=== PATIENT | male | born 1990 | race Caucasian/White ===

== ENCOUNTER 2019-08-01 07:43 | Emergency (ER) | payer MEDICAID, SELFPAY ==
[2019-08-01 07:45] VITALS: BP 140/79; PULSE 90; RESP 16; TEMP 36.6; O2SAT 98; BMI 28.8
--- NOTE | 2019-08-01 08:15 | XR_ITS ---
PROCEDURE: XR LUMBAR SPINE 2-3V CLINICAL INDICATION: pain Low back pain COMPARISON: No exams were available for comparison FINDINGS: Is normal alignment. There is mild degenerative disc disease T11-T12 T12-L1 and L1-L2 L4-5 and L5-S1. There is mild facet arthritic changes at L5-S1. No acute fracture or dislocation. No lytic or blastic change. There is straightening of the lumbar lordosis which could be seen with muscle spasm. There is minimal retrolisthesis of L4 on L5 of 2-3 mm IMPRESSION: Degenerative changes as described above. Dictated by: Peewee Low MD 08/01/2019 09:08 Electronically signed by Peewee Low MD in [place] 08/01/2019 09:08
--- NOTE | 2019-08-01 08:58 | HMH.EDBACK ---
ED Disposition Clinical Impression: Strain of lumbar region Disposition: Home, Self-Care Condition on Discharge: Good Instructions: DI for Low Back Pain Prescriptions: Nabumetone 750 mg PO BID 10 Days #20 tab Transmission Status: Pending to [facility] Tizanidine HCl [Zanaflex 4mg tablet] 4 mg PO TID 10 Days #30 tab Transmission Status: Pending to [facility] Referrals: Adriana Bullock MD [Primary Care Provider] - - Critical Care Critical Care Time: No Attestation: On 08/01/19, the high probability of a clinically significant, sudden or life threatening deterioration of the following system(s) required my full and direct attention, intervention and personal management. The time I documented below is in addition to time spent performing reported procedures but includes the following listed in this critical care notation. Medical Decision Making - Medical Records Medical records reviewed: Yes: I reviewed the patient's medical records. - Todd Inquiry Pt receiving controlled substance: No Vital Signs: 08/01/19 07:45 Temperature 98 F Temperature Source Oral Pulse Rate [Left Radial] 90 Respiratory Rate 16 Blood Pressure [Right Arm] 140/79 Blood Pressure Mean [Right Arm] 99 Blood Pressure Position [Right Arm] Sitting 02 Sat by Pulse Oximetry 98 Oxygen Delivery Method Room Air - Lab Data Lab results reviewed: Yes: I reviewed the patient's lab results. Orders (Tests/Meds): ORDERS Category Date Time Status XR lumbar spine 2-3V Stat Exams 08/01/19 08:15 Taken - Radiology Data #1 Image(s): L-Spine Preliminary Findings: Normal/NAD Back Pain HPI - General Chief Complaint: Back Pain/Injury Stated Complaint: back pain, no accident Time Seen by Provider: 08/01/19 08:20 Mode of Arrival: Ambulatory Source of Information: Patient Limitations: No Limitations Description of Symptoms (Recalled from ER Triage Doc. by RN): to ed per pvt car with c/o lt side back pain radiating down lt leg. pt states playing cornhole this weekend and started with pain.states taking motrin and tylenol at home with no relief. - History of Present Illness Complaint: back pain Onset (ago): day(s) Duration: constant Similar Symptoms Previously: Yes Location: lumbar spine Severity: mild Quality: sharp Radiation: none Severity scale (1-10): 4 Relieving factors: sitting upright Exacerbating factors: movement Context: turning/twisting Associated symptoms: denies other symptoms Treatments prior to arrival: cold therapy - Related Data Previous Rx's Medication Instructions Recorded Nabumetone 750 mg PO BID 10 Days #20 tab 08/01/19 Tizanidine HCl [Zanaflex 4mg 4 mg PO TID 10 Days #30 tab 08/01/19 tablet] Allergies Allergy/AdvReac Type Severity Reaction Status Date / Time No Known Allergies Allergy Verified 05/15/19 12:05 [facility] History - Hepatitis A Screen Drug use history?: No High risk sexual behaviors?: No History of sexually transmitted infection?: No Currently employed?: No Childcare worker?: No Do you have indoor plumbing?: Yes Do you have electricity?: Yes Attestation statement:: This patient has been screened for Hepatitis A risk factors. I have reviewed the patient's past medical history: Yes Other Surgeries: Yes: No Previous Surgery - Social History Smoking Status: Current every day smoker Alcohol Intake: never Alcohol Intake Frequency:: holidays/special occasions only Occupational Status: other Housing: other Family Hx:: Non-contributory ROS Obtained: Yes All systems reviewed & no additional complaints - Constitutional Constitutional: Reports system reviewed and no additional complaints, except as docu - Eyes Eyes: Reports system reviewed and no additional complaints, except as docu - ENT Ears, Nose, Mouth, and Throat: Reports system reviewed and no additional complaints, except as docu - Cardiovascular Cardiovascular: Reports system r
[2019-08-01 09:19] VITALS: BP 131/74; PULSE 78; RESP 16; TEMP 36.6; O2SAT 98
== END 2019-08-01 09:20 | disposition home or self-care (01) ==
PROVIDERS: Emergency Provider Family Medicine; PCP Family Medicine
DX: S39.012A Strain of muscle, fascia and tendon of lower back, initial encounter (principal); X50.3XXA Overexertion from repetitive movements, initial encounter; Y92.89 Other specified places as the place of occurrence of the external cause
CPT/HCPCS: 72100; 99282

== ENCOUNTER 2020-01-16 12:41 | Emergency (ER) | payer MEDICAID, SELFPAY ==
[2020-01-16 13:15] VITALS: BP 116/83; PULSE 91; RESP 14; TEMP 36.9; O2SAT 95; BMI 25.7
--- NOTE | 2020-01-16 13:26 | HMH.EDUTC ---
[facility] [place]ression: Abscess of right leg Disposition: Home, Self-Care Condition on Discharge: Good Instructions: Boil Additional Instructions: Apply warm wet compresses to the affected sites three or four times per day for 15 minutes as tolerated. Take the antibiotics as directed. Follow up with your regular doctor. GO TO THE ER FOR ANY WORSENING SYMPTOMS OR CONCERNS Prescriptions: Sulfamethoxazole/Trimethoprim [Bactrim DS tablet] 1 each PO BID 10 Days #20 tab Transmission Status: Received by [facility] Mupirocin [Bactroban 2% Ointment 22gm tube] 1 applicatio TP TID 7 Days #1 tube Transmission Status: Received by [facility] cephALEXin [Keflex 500mg Cap] 500 mg PO Q6H 10 Days #40 cap Transmission Status: Received by [facility] Referrals: Adriana Bullock MD [Primary Care Provider] - Forms: Work/School Release Time of Disposition: 13:55 Medical Decision Making - Medical Records Medical records reviewed: No: I reviewed the patient's medical records. - Todd Inquiry Pt receiving controlled substance: No Vital Signs: 01/16/20 13:15 01/16/20 14:01 Temperature 98.5 F 98.5 F Temperature Source Oral Pulse Rate 91 H Pulse Rate [Right Brachial] 91 H Respiratory Rate 14 14 Blood Pressure 116/83 Blood Pressure [Right Arm] 116/83 Blood Pressure Mean [Right Arm] 94 Blood Pressure Source [Right Arm] Automatic Cuff Blood Pressure Position [Right Arm] Sitting 02 Sat by Pulse Oximetry 95 Oxygen Delivery Method Room Air Orders (Tests/Meds): ED MEDICATIONS Discontinued Medications Generic Name Dose Route Start Last Admin Trade Name Freq PRN Reason Stop Dose Admin Ceftriaxone Sodium 1 gm 01/16/20 13:29 01/16/20 13:54 Ceftriaxone 1gm Vial IM 01/16/20 13:30 1 gm ONCE ONE Administration Protocol Lidocaine HCl 0 ml 01/16/20 13:29 01/16/20 13:54 Lidocaine 1% 5ml Pf Vial IM 01/16/20 13:30 2.1 ml ONCE ONE Administration ORDERS Category Date Time Status Wound Culture and Gram Stain Stat Micro 01/16/20 13:30 [place] [facility] [place] - General Stated complaint: Possible spider R leg Time Seen by Provider: 01/16/20 13:15 - History of Present Illness Provider Complaint: He states that he has a red area on the back of right leg. It has been there for the past 4 days. He states that it is getting more red around the the site. - Related Data Previous Rx's Medication Instructions Recorded Nabumetone 750 mg PO BID 10 Days #20 tab 08/01/19 Tizanidine HCl [Zanaflex 4mg 4 mg PO TID 10 Days #30 tab 08/01/19 tablet] Mupirocin [Bactroban 2% Ointment 1 applicatio TP TID 7 Days #1 tube 01/16/20 22gm tube] Sulfamethoxazole/Trimethoprim 1 each PO BID 10 Days #20 tab 01/16/20 [Bactrim DS tablet] cephALEXin [Keflex 500mg Cap] 500 mg PO Q6H 10 Days #40 cap 01/16/20 Allergies Allergy/AdvReac Type Severity Reaction Status Date / Time No Known Allergies Allergy Verified 05/15/19 12:05 [facility] History - Hepatitis A Screen Attestation statement:: This patient has been screened for Hepatitis A risk factors. I have reviewed the patient's past medical history: Yes Other Surgeries: Yes: No Previous Surgery - Social History Smoking Status: Current every day smoker Alcohol Intake: never Alcohol Intake Frequency:: holidays/special occasions only Occupational Status: other Housing: other Family Hx:: Non-contributory ROS Obtained: Yes All systems reviewed & no additional complaints - Constitutional Constitutional: Reports chills, Denies fever(s), Denies poor appetite, Reports malaise - Eyes Eyes: Denies eye discharge - Integumentary/Breasts Skin/Breast: Reports as per HPI Physical Exam - General General appearance: alert, in no apparent distress - Head Head exam: atraumatic, normocephalic, normal inspection - Eye Eye exam: Present: normal appearance, PERRL, EOMI
[2020-01-16 14:01] VITALS: BP 116/83; PULSE 91; RESP 14; TEMP 36.9; O2SAT 95
== END 2020-01-16 14:13 | disposition home or self-care (01) ==
PROVIDERS: Emergency Provider Nurse Practitioner Family; PCP Family Medicine
DX: L02.415 Cutaneous abscess of right lower limb (principal); F17.210 Nicotine dependence, cigarettes, uncomplicated
CPT/HCPCS: 87070; 87077; 87186; 87205; 96372; 99202

== ENCOUNTER 2021-01-16 13:56 | Emergency (ER) | payer MEDICAID, SELFPAY ==
[2021-01-16 14:00] VITALS: BP 148/81; PULSE 89; RESP 21; TEMP 37; O2SAT 99; BMI 30.2
--- NOTE | 2021-01-16 14:26 | HMH.EDUTC ---
[facility] [place]ression: Strep [place] Disposition: Home, Self-Care Condition on Discharge: Good Instructions: DI for Strep Throat Additional Instructions: Start antibiotics today be sure to take it as ordered with the full length of time although you should start feeling better in 24-48 hours. Change toothbrush and toothpaste 24-48 hours after starting antibiotics Tylenol or Motrin as needed for fever or pain Encourage fluids, water, Gatorade, Powerade, try cold fluids, popsicles, ice cream will make it feel better You are contagious for 24 hours. Avoid kissing anyone, no eating or drinking after anyone. You are contagious. Follow-up the ER for new or worsening symptoms or no noticeable improvement over the next 24-48 hours. Follow-up with PCP this week. Prescriptions: Azithromycin [Zithromax 250mg tab] 250 mg PO DIRECTED #6 tab Transmission Status: Pending to [id number] Referrals: Adriana Bullock MD [Primary Care Provider] - Time of Disposition: 14:48 Medical Decision Making - Todd Inquiry Pt receiving controlled substance: No Vital Signs: 01/16/21 14:00 Temperature 98.6 F Temperature Source Oral Pulse Rate [Right Brachial] 89 Respiratory Rate 21 Blood Pressure [Right Arm] 148/81 H Blood Pressure Mean [Right Arm] 103 Blood Pressure Source [Right Arm] Automatic Cuff Blood Pressure Position [Right Arm] Sitting 02 Sat by Pulse Oximetry 99 Oxygen Delivery Method Room Air - Lab Data Lab Results 01/16/21 14:19: Strep Scn Rapid Clinic Positive [place] [facility] [place] - General Chief complaint: Urgent [facility] Stated complaint: sore throat Time Seen by Provider: 01/16/21 14:26 Mode of Arrival: Ambulatory Source of Information: Patient Limitations: No Limitations Description of Symptoms (Recalled from Triage Doc. by RN): PATIENT C/O SORE THROAT SINCE YESTERDAY HEENT Symptoms (Recalled from RN notes): Yes Resp Symptoms (Recalled from RN notes): No Skin Symptoms (Recalled from RN notes): No MS Symptoms (Recalled from RN notes): No Functional Status (Recalled from RN notes): WNL - History of Present Illness Provider Complaint: 30 yr old male presnets for sore throat since monday. - Related Data Previous Rx's Medication Instructions Recorded Azithromycin [Zithromax 250mg 250 mg PO DIRECTED #6 tab 01/16/21 tab] Allergies Allergy/AdvReac Type Severity Reaction Status Date / Time No Known Allergies Allergy Verified 05/15/19 12:05 - Worker's Comp Is this a Worker's Comp case?: No H History - Hepatitis A Screen Drug use history?: No High risk sexual behaviors?: No History of sexually transmitted infection?: No Currently employed?: No Childcare worker?: No Do you have indoor plumbing?: Yes Do you have electricity?: Yes Attestation statement:: This patient has been screened for Hepatitis A risk factors. I have reviewed the patient's past medical history: Yes Laterality Cases: Bilateral: Myringotomy (Ear Tubes) Other Surgeries: Yes: No Previous Surgery - Social History Smoking Status: Current every day smoker Tobacco Type: cigarettes # Packs/Day (cigarettes): 1 Alcohol Intake: never Alcohol Intake Frequency:: holidays/special occasions only Occupational Status: other Housing: other Family Hx:: Non-contributory ROS Obtained: Yes Systems reviewed as appropriate & no additional complaints - Constitutional Constitutional: Reports system reviewed and no additional complaints, except as docu, Denies fever(s) - Eyes Eyes: Reports system reviewed and no additional complaints, except as docu, Denies dry eyes - ENT Ears, Nose, Mouth, and Throat: Reports system reviewed and no additional complaints, except as docu, Denies abnormal hearing, Reports sore throat - Cardiovascular Cardiovascular: Reports system reviewed and no additional complaints, except as docu, Denies chest pain - Respiratory Respiratory: Reports system review
[2021-01-16 14:33] LABS: UTC Strep Screen (Rapid) Positive (Negative)
[2021-01-16 14:49] VITALS: BP 148/81; PULSE 89; RESP 21; TEMP 37; O2SAT 99
== END 2021-01-16 14:54 | disposition home or self-care (01) ==
PROVIDERS: Emergency Provider Nurse Practitioner Family; PCP Family Medicine
DX: J02.0 Streptococcal pharyngitis (principal); F17.210 Nicotine dependence, cigarettes, uncomplicated
CPT/HCPCS: 87880; 99202; G0463

== ENCOUNTER 2023-08-31 11:34 | Emergency (ER) | payer MEDICAID, SELFPAY ==
[2023-08-31 11:50] VITALS: BP 110/86; PULSE 84; RESP 20; TEMP 36.9; O2SAT 98; BMI 24.6
--- NOTE | 2023-08-31 12:37 | ED_ITS ---
Discharge Plan Disposition Patient Disposition: Home, Self-Care Condition: Good Prescriptions Prescriptions: New fluticasone propionate [Flonase Allergy Relief] 50 mcg/actuation spray,suspension 1 spray intranasal DAILY Qty: 16 0RF Rx Instructions: administer into each nostril twice a day for a week and then once daily amoxicillin-pot clavulanate 875-125 mg tablet 1 tab PO Q12H 10 Days Qty: 20 0RF Referrals Follow up/Referrals: Paulette Reyes MD [Primary Care Provider] - See instructions Activity Restrictions/Add. Instructions Additional Instructions/Restrictions: Take medication as prescribed. Increase fluids and rest. If symptoms persist or worsen, return to clinic or go to PCP. Clinical Impressions Clinical Impression: Otitis media Stand Alone Forms Stand Alone Forms: Work/School Release Instructions Patient Instructions: Middle Ear Infection Discharge ED Provider: Vanna Daley [facility] General Stated complaint: left ear pain Mode of Arrival: Ambulatory Source of Information: Patient Limitations: No Limitations Time Seen by Provider: 08/31/23 12:32 Description of Symptoms (Recalled from Triage Doc. by RN): PATIENT C/O PAIN, RINGING, AND MUFFLED HEARING TO LEFT EAR X 4 DAYS HEENT Symptoms (Recalled from RN notes): Yes Resp Symptoms (Recalled from RN notes): No Skin Symptoms (Recalled from RN notes): No MS Symptoms (Recalled from RN notes): No Functional Status (Recalled from RN notes): WNL History of Present Illness Provider Complaint: left ear pain with ringing and muffled hearing for the past 4 days. Pt states that he took a Sudafed to help with symptoms, but this did not help. Related Data Previous Rx's Medication Instructions Recorded amoxicillin 875 mg-potassium 1 tab PO Q12H 10 days #20 tabs 08/31/23 clavulanate 125 mg tablet fluticasone propionate 50 1 spray intranasal DAILY #16 grams 08/31/23 mcg/actuation nasal spray,suspension (Flonase Allergy Relief) Allergies Allergy/AdvReac Type Severity Reaction Status Date / Time No Known Allergies Allergy Verified 05/15/19 12:05 Worker's Comp Is this a Worker's Comp case?: No [facility] Disclaimer: The information contained in this section may have been updated after the patient was seen, as this information can be updated by other users. Medical History (Updated 08/31/23 @ 12:41 by Vanna Daley APRN) No significant past medical history Social History Smoking Status: Current every day smoker tobacco type: cigarettes packs per day: 1 alcohol intake: never current occupational status: other Travel in the last 8 weeks: None housing: other ROS Obtained: Yes All systems reviewed & no additional complaints except as documented Constitutional Constitutional: Reports system reviewed and no additional complaints, except as documented Eyes Eyes: Reports system reviewed and no additional complaints, except as documented ENT Ears, Nose, Mouth, and Throat: Reports system reviewed and no additional complaints, except as documented, Reports as per HPI, Reports otalgia and Reports nasal discharge Cardiovascular Cardiovascular: Reports system reviewed and no additional complaints, except as documented Respiratory Respiratory: Reports system reviewed and no additional complaints, except as documented Gastrointestinal Gastrointestingal: Reports system reviewed and no additional complaints, except as documented Genitourinary Male Genitourinary: Reports system reviewed and no additional complaints, except as documented Musculoskeletal Musculoskeletal: Reports system reviewed and no additional complaints, except as documented Integumentary/Breasts Skin/Breast: Reports system reviewed and no additional complaints, except as documented Neurologic Neurologic: Reports system reviewed and no additional complaints, except as documented Endocrine Endocrine: Reports system reviewed and no additional complaints, except as documented Hematologic/Lymphatic Henatologic/Lymphatic: Reports system reviewed and no additional complaints, except as documented Allergic/Immunologic Allergic/Immunologic: Reports system reviewed and no additional complaints, except as documented Physical Exam General General appearance: alert Head Head exam: atraumatic and normocephalic Eye Eye exam: Present normal appearance ENT ENT exam: Present mucous membranes moist Expanded ENT Exam External ear exam: Present normal external inspection TM/Canal exam: Left TM: erythema and perforation, Right TM: bulging and Armando ateral TM: effusion and loss of landmarks Nose exam: Present sinus tenderness Nasal speculum exam: Bilateral: normal Mouth exam: Present normal external inspection Teeth exam: Present normal inspection Throat exam: Present normal inspection Neck Neck exam: Present normal inspection; Absent lymphadenopathy Chest Chest inspection: Present normal inspection and symmetric chest wall rise Respiratory Respiratory exam: Present normal lung sounds bilaterally Cardiovascular Cardiovascular exam: Present regular rate, normal rhythm and normal heart sounds Abdominal Exam Abdominal exam: Present soft and normal bowel sounds Extremities Exam Extremities exam: Present normal inspection Back Exam Back exam: Present normal inspection Neurological Exam Neurological exam: Present alert and oriented X3 Psychiatric Psychiatric exam: Present normal affect and normal mood Skin Skin exam: Present warm, dry and intact Lymphatic Lymphatic Findings: no adenopathy Medical Decision Making Todd Inquiry Pt receiving controlled substance: No Todd was queried for this patient: No Vital Signs: 08/31/23 11:50 Temperature 98.4 F Temperature Source Oral Pulse Rate [Left Brachial] 84 Respiratory Rate 20 Blood Pressure [Left Arm] 110/86 Blood Pressure Mean [Left Arm] 94 Blood Pressure Source [Left Arm] Automatic Cuff Blood Pressure Position [Left Arm] Sitting 02 Sat by Pulse Oximetry 98 Oxygen Delivery Method Room Air
[2023-08-31 12:42] VITALS: BP 110/86; PULSE 84; RESP 20; TEMP 36.9; O2SAT 98
== END 2023-08-31 12:46 | disposition home or self-care (01) ==
PROVIDERS: Emergency Provider Nurse Practitioner Family; PCP Family Medicine
DX: H66.92 Otitis media, unspecified, left ear (principal); H92.02 Otalgia, left ear
CPT/HCPCS: 99212; 99214; G0463

== ENCOUNTER 2024-10-13 12:58 | Emergency (ER) | payer OTHER, SELFPAY ==
[2024-10-13 13:12] VITALS: BP 128/86; PULSE 95; RESP 18; TEMP 36.8; O2SAT 98; BMI 25.0
--- NOTE | 2024-10-13 13:13 | ECG_ITS ---
APPROVED REPORT Exam: Resting ECG HR:97 bpm ECG Measurements Heart Rate 97 AXES ND 138 P 50 QRSd 106 QRS 40 QT 347 T 42 QTc 401 Conclusion SINUS RHYTHM POSSIBLE LEFT ATRIAL ENLARGEMENT [-0.1mV P-WAVE IN V1/V2] POSSIBLE RIGHT VENTRICULAR CONDUCTION DELAY [RSR (QR) IN V1/V2] BORDERLINE ECG UNCONFIRMED REPORT Normal sinus rhythm. No ST elevation or depression. QTc normal 401 Electronically signed by : ISAIAS RAMOS, 10/14/2024 07:04:24
--- OUTSIDE RECORDS SUMMARY | 2024-10-13 13:13 | XMS_ITS | Clinical Summary ---
Author Organization [facility] Address [address] [place] [id number] Phone [email or web address] Care Team Providers Care Candy Department Manager Name Role Phone Unavailable Primary Care Provider Unavailabl e Allergies No known active allergies Medications acetaminophen (TYLENOL) 500 MG tablet Take by mouth every 6 (six) hours if needed for mild pain. OTC Active ibuprofen (MOTRIN) 200 MG tablet Take 200 mg by mouth every 6 (six) hours if needed for mild pain. OTC Active Active Problems No known active problems Social History Tobacco Use Types Packs/Day Years Used Date Smoking Tobacco: Every Day Cigarettes Smokeless Tobacco: Current Chew Intimate Partner Violence Answer Date R ecorded Insults You Not on file 06/17/2020 Threatens You Not on file 06/17/2020 Screams at You Not on file 06/17/2020 Physically Hurt Not on file 06/17/2020 Intimate Partner Violence Score Not on file 06/17/2020 Stress Answer Date Recorded Stress in your Life Not on file 01/09/2024 Dealing with Stress 3 01/09/2024 Sex and Gender Information Value Date Recorded Sex Assigned at Not on file Legal Sex Male 12:13 PM CDT Gender Identity Not on file Sexual Orientation Not on file Last Filed Vital Signs Vital Sign Reading Time Taken Comments Blood Pressure - - Pulse 103 10/20/2020 10:32 PM EDT Temperature 37.8 C (100.1 F) 10/20/2020 10:32 PM EDT Respiratory Rate - - Oxygen Saturation 95% 10/20/2020 10:32 PM EDT Inhaled Oxygen Concentration - - Weight - - Height - - Body Mass Index - - Plan of Treatment Health Maintenance Due Date Last Done Comments Dental Cleaning/Exam 1988 HIV Screening 1988 Hepatitis C Screening 1988 HPV Immunization (1 - Male 3 -dose series) 02/24/2003 Annual Preventive Exam 02/24/2006 Hep B Infection Screening - Triple Screen 02/24/2006 Hepatitis B Immunization (1 of 3 - 19+ 3-dose series) 02/24/2007 Pneumococcal: Ped (0 to 5 Yr s) and At-Risk Member (6 to 64 Yrs) (1 of 2 - PCV) 02/24/2007 Tetanus Diphtheria and Pertu ssis Immunization (1 - Tdap) 02/24/2007 Covid-19 Immunization (1 - 2 season) 2023 Influenza Immunization (#1) 2024 HIB Immunization Aged Out No longer e ligible based on patient's age to complete this topic Hepatitis A Immunization Aged Out No longer eligible based on patient's age to complete this topic Polio Immunization Aged Out No longer eligible based on patient's age to complete this topic Varicella Immunization Aged Out No lo nger eligible based on patient's age to complete this topic Insurance OPT OUT NO COPAY NB
--- NOTE | 2024-10-13 13:21 | CT_ITS ---
PROCEDURE INFORMATION: Exam: CTA Head With Contrast, Arteriography Exam date and time: 10/13/2024 1:45 PM Age: 34 years old Clinical indication: Other: Right facial droop TECHNIQUE: Imaging protocol: Computed tomographic angiography of the head with contrast. Exam focused on the arteries. 3D rendering (Not supervised by radiologist): MIP and/or 3D reconstructed images were created by the technologist. Radiation optimization: All CT scans at this facility use at least one of these dose optimization techniques: automated exposure control; mA and/or kV adjustment per patient size (includes targeted exams where dose is matched to clinical indication); or iterative reconstruction. Contrast material: ISOVUE; Contrast volume: 80 ml; Contrast route: INTRAVENOUS (IV); COMPARISON: CT HEAD/BRAIN WO CON 10/13/2024 1:43 PM FINDINGS: ANTERIOR CIRCULATION: Right internal carotid artery: Intracranial segment is patent with no significant stenosis. No aneurysm. Right middle cerebral artery: No occlusion or significant stenosis. No aneurysm. Right anterior cerebral artery: No occlusion or significant stenosis. No aneurysm. Left internal carotid artery: Intracranial segment is patent with no significant stenosis. No aneurysm. Left middle cerebral artery: No occlusion or significant stenosis. No aneurysm. Left anterior cerebral artery: No occlusion or significant stenosis. No aneurysm. POSTERIOR CIRCULATION: Right vertebral artery: No occlusion or significant stenosis. No aneurysm. Left vertebral artery: The intradural segment of the left vertebral artery is small but patent. Basilar artery: No occlusion or significant stenosis. No aneurysm. Right posterior cerebral artery: No occlusion or significant stenosis. No aneurysm. Left posterior cerebral artery: No occlusion or significant stenosis. No aneurysm. Brain: No abnormal enhancement. Cerebral ventricles: No ventriculomegaly. Bones/joints: No acute fracture. Soft tissues: Unremarkable. IMPRESSION: There is no acute intracranial large vessel arterial occlusion.
--- NOTE | 2024-10-13 13:21 | CT_ITS ---
PROCEDURE INFORMATION: Exam: CTA Neck With Contrast Exam date and time: 10/13/2024 1:45 PM Age: 34 years old Clinical indication: Other: R facial droop; Additional info: Right facial droop TECHNIQUE: Imaging protocol: Computed tomographic angiography of the neck with contrast. Exam focused on the cervical segments of the vasculature. 3D rendering (Not supervised by radiologist): MIP and/or 3D reconstructed images were created by the technologist. Radiation optimization: All CT scans at this facility use at least one of these dose optimization techniques: automated exposure control; mA and/or kV adjustment per patient size (includes targeted exams where dose is matched to clinical indication); or iterative reconstruction. Contrast material: ISOVUE; Contrast volume: 80 ml; Contrast route: INTRAVENOUS (IV); COMPARISON: CT HEAD/BRAIN WO CON 10/13/2024 1:43 PM FINDINGS: Right common carotid artery: No stenosis. No dissection or occlusion. Right internal carotid artery: No stenosis of the extracranial segment. No dissection or occlusion. Right external carotid artery: No occlusion or stenosis of the origin. Left common carotid artery: No stenosis. No dissection or occlusion. Left internal carotid artery: No stenosis of the extracranial segment. No dissection or occlusion. Left external carotid artery: No occlusion or stenosis of the origin. Right vertebral artery: The right vertebral artery is dominant Left vertebral artery: No stenosis. No dissection or occlusion. Soft tissues: Normal. No significant soft tissue swelling. Bones/joints: The maxilla is edentulous. The mandible is partially edentulous. Lungs: There are some paraseptal emphysematous changes apices. IMPRESSION: No hemodynamically significant cervical arterial stenosis or acute cervical arterial occlusion. REFERENCES: NASCET CRITERIA. The degree of stenosis in the cervical segment of the internal carotid artery is based on NASCET criteria. Normal is no stenosis. Mild is less than 50% stenosis. Moderate is 50-69% stenosis. Severe is 70% to 99% stenosis. Total occlusion is no detectable patent lumen.
--- NOTE | 2024-10-13 13:21 | CT_ITS ---
PROCEDURE INFORMATION: Exam: CT Head Without Contrast Exam date and time: 10/13/2024 1:43 PM Age: 34 years old Clinical indication: Other: Right facial droop TECHNIQUE: Imaging protocol: Computed tomography of the head without contrast. Radiation optimization: All CT scans at this facility use at least one of these dose optimization techniques: automated exposure control; mA and/or kV adjustment per patient size (includes targeted exams where dose is matched to clinical indication); or iterative reconstruction. COMPARISON: CT HEAD/BRAIN WO CON 10/13/2024 1:43 PM FINDINGS: Brain: No hemorrhage. Unremarkable white matter. No mass effect. Cerebral ventricles: No ventriculomegaly. Paranasal sinuses: Visualized sinuses are unremarkable. No fluid levels. Mastoid air cells: Visualized mastoid air cells are well aerated. Bones: No acute fracture. Soft tissues: Unremarkable. IMPRESSION: No acute intracranial abnormality.
[2024-10-13 13:26] LABS: Hematocrit 45.7 % (42.0-52.0); Hemoglobin 15.8 g/dL (14.1-18.0); Immature Granulocytes % 0.2 %; Mean Corpuscular HGB Conc 34.6 g/dL (31.8-35.4); Mean Corpuscular Hemoglobin 31.9 pg (27.0-31.2); Mean Corpuscular Volume 92.1 fl (80-94); Nucleated Red Blood Cells % 0 %; Platelet Count 237 K/mm3 (142-424); Red Blood Count 4.96 M/mm3 (4.60-6.20); Red Cell Distribution Width-SD 46.8 fL; White Blood Count 8.7 K/mm3 (4.8-10.8)
--- NOTE | 2024-10-13 13:28 | [facility].EDGENADL ---
Discharge Plan Disposition Patient Disposition: Home, Self-Care Prescriptions Prescriptions: New valacyclovir 1 gram tablet 1,000 mg PO TID 7 Days Qty: 21 0RF Artificial Tears (cmc) 1 % drops 1 drp ophthalmic (eye) Q3H PRN (Reason: dry eye(s)) Qty: 15 0RF No Action fluticasone propionate [Flonase Allergy Relief] 50 mcg/actuation spray,suspension 1 spray intranasal DAILY Qty: 16 0RF Rx Instructions: administer into each nostril twice a day for a week and then once daily amoxicillin-pot clavulanate 875-125 mg tablet 1 tab PO Q12H 10 Days Qty: 20 0RF Referrals Follow up/Referrals: Provider,Referral, MD [Primary Care Provider, Medical] - See instructions Activity Restrictions/Add. 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 You are being prescribed Yadi acyclovir for this reason. At night, tape your right eye shut because it will open on its own while sleeping and can dry out your eyes. You are also being prescribed moisturizing eyedrops. Use these as needed. If you develop any new or worsening symptoms, or if you become concerned for your health for any reason, return to the emergency department for evaluation Clinical Impressions Clinical Impression: Ballard's palsy Instructions Patient Instructions: DI for [place] [facility] Print Language Print Language: Frisian Discharge ED Provider: Tanner Jordan General Adult HPI General Chief complaint: Neuro Symptoms/Deficit Stated complaint: numbness on L side of face Time Seen by Provider: 10/13/24 13:12 Mode of Arrival: Ambulatory Source of Information: Patient Description of Symptoms (Recalled from ER Triage Doc. by RN): Pt presents with c/o right sided facial numbness, numbness to tongue, and asymmetical smile since 10-07-24. Pt states he would try to drink and it was just coming out the side of his mouth. Pt denies any prior medical hx. History of Present Illness HPI narrative: Felice Nicole is a 34-year-old male with no known past medical history who presents to the emergency department with complaints of right facial drooping and numbness. Patient states that starting on Monday, he developed numbness and tingling to the right side of his tongue. The following day he developed drooping of his right lip and right face. He states that he feels like he is having to blink a lot and that his right eye does not close all the way. He was reading online that this could be signs of a stroke so he presented to the emergency department today. He denies any recent rashes or history of strokes. He denies any chest pain or shortness of breath. He denies any numbness or weakness in his arms or legs. He has been ambulating normally. Related Data Previous Rx's ?Medication ?Instructions ?Recorded amoxicillin 875 mg-potassium 1 tab PO Q12H 10 days #20 tabs 08/31/23 clavulanate 125 mg tablet fluticasone propionate 50 1 spray intranasal DAILY #16 grams 08/31/23 mcg/actuation nasal spray,suspension (Flonase Allergy Relief) carboxymethylcellulose sodium 1 % 1 drp ophthalmic (eye) Q3H PRN dry 10/13/24 eye drops (Artificial Tears eye(s) #15 mL (carboxymethylcellulose)) valacyclovir 1 gram tablet 1,000 mg PO TID 7 days #21 tabs 10/13/24 Allergies Allergy/AdvReac Type Severity Reaction Status Date / Time No Known Allergies Allergy Verified 05/15/19 12:05 [facility] Disclaimer: The information contained in this section may have been updated after the patient was seen, as this information can be updated by other users. Medical History (Updated 10/13/24 @ 14:29 by Tanner Jordan MD) No significant past medical history Social History Smoking Status: Current every day smoker tobacco type: cigarettes packs per day: 1 alcohol intake: never current occupational status: other Travel in the last 8 weeks?: None housing: other Have you lived/traveled outside [place] in past 30 days?: No Contact w/someone who lives/traveled outside [place] past 30 days?: No Exposure to someone with infectious disease in past 14 days?: No Do you have a fever (greater than 100.4 F or 38 C)?: No Have you tested positive for COVID-19?: No Exposed to someone with COVID-19 in past 14 days?: No Do you have a sore throat?: No Do you have a cough?: No Do you have any weakness?: No Do you have any diarrhea?: No Are you experiencing any unusual bleeding?: No Do you have any muscle aches/pain?: No Do you have any abdominal pain?: No Are you experiencing loss of taste or smell?: No Other Medical History Have you received the Flu Vaccine for this season: No Have you received the Pneumonia Vaccine: No ROS Obtained: Yes Systems reviewed as appropriate & no additional complaints except as documented Physical Exam General General appearance: alert and in no apparent distress Head Head exam: atraumatic Eye Eye exam: Present normal appearance ENT ENT exam: Present TM's normal bilaterally, normal external ear exam and other (No rashes to the external auditory canal or tympanic membrane) Neck Neck exam: Present full ROM Chest Chest inspection: Present symmetric chest wall rise Respiratory Respiratory exam: Present normal lung sounds bilaterally; Absent respiratory distress Cardiovascular Cardiovascular exam: Present regular rate and normal rhythm Abdominal Exam Abdominal exam: Present soft; Absent tenderness or guarding exam: Present deferred Extremities Exam Extremities exam: Present normal inspection Back Exam Back exam: Present normal inspection Neurological Exam Neurological exam: Present alert, oriented X3 and other (5 out of 5 strength and sensation to bilateral upper and lower extremities. Finger-nose testing normal. Normal [id number] testing.); Absent CN II-XII intact (Facial drooping on the right at the corner of the lip, nasolabial fold, right lower eyelid. Loss of right sided forehead wrinkling. Tongue midline with extrusion. Pupils equal round reactive to light. Extraocular movements intact. The remainder of his cranial nerves are unremarkable.) Psychiatric Psychiatric exam: Present normal affect Skin Skin exam: Present warm and dry Medical Decision Making Medical Records Screening: Per USPSTF and CDC recommendations, given the prevalence of disease in our region, it is our hospital?s policy to screen for HIV and viral Hepatitis for all patients aged 18 and over and those with ongoing risk factors. Todd Inquiry Pt receiving controlled substance: No Vital Signs: 10/13/24 13:12 10/13/24 13:30 Temperature 98.2 F Temperature Source Oral Pulse Rate 94 H Pulse Rate [Right] 95 H Respiratory Rate 18 16 Blood Pressure 135/85 Blood Pressure [Right Arm] 128/86 Blood Pressure Mean 101 Blood Pressure Mean [Right Arm] 100 Blood Pressure Source [Right Arm] Automatic Cuff Blood Pressure Position [Right Arm] Sitting 02 Sat by Pulse Oximetry 98 96 Oxygen Delivery Method Room Air Room Air Lab Data Lab Results 10/13/24 13:17: WBC 8.7, RBC 4.96, Hgb 15.8, Hct 45.7, MCV 92.1, MCH 31.9 H, MCHC 34.6, RDW 13.8, Plt Count 237, MPV 9.7, Neut % (Auto) 66.9, Lymph % (Auto) 26.0, [place] % (Auto) 4.6, Eos % (Auto) 2.0, Baso % (Auto) 0.3, Neut # (Auto) 5.8, Lymph # (Auto) 2.3, [place] # (Auto) 0.4, Eos # (Auto) 0.2, Baso # (Auto) 0.0, PT 11.1, INR 1.00, APTT 27.1, Sodium 143, Potassium 3.7, Chloride 105, Carbon Dioxide 28, Anion Gap 13.7, BUN 12, Creatinine 0.80, Estimated Creat Clear 152, Estimated GFR 109, Est GFR ( Amer) 132, Glucose 110 H, Calcium 9.2, Magnesium 1.9, Total Bilirubin 0.4, AST 30, ALT 24, Alkaline Phosphatase 109, Total Protein 7.8, Albumin 4.8, Globulin 3.0, Albumin/Globulin Ratio 1.6 10/13/24 13:17 10/13/24 13:17 Orders (Tests/Meds): ED MEDICATIONS Discontinued Medications Generic Name Dose Route Start Last Admin Trade Name Freq PRN Reason Stop Dose Admin Iopamidol 80 ml 10/13/24 13:42 10/13/24 13:52 Iopamidol-370 (76%);100ml Bottle IV 10/13/24 13:43 80 ml ONCE ONE Administration Sodium Chloride 10 ml 10/13/24 13:42 10/13/24 13:52 Sodium Chloride 0.9% 10ml Syr (Rad Only) IV 10/13/24 13:43 10 ml ONCE ONE Administration Sodium Chloride 50 ml 10/13/24 13:42 10/13/24 13:52 0.9 % Sodium Chloride 50 Ml Vial IV 10/13/24 13:43 50 ml ONCE ONE Administration ORDERS Category Date Time Status CT angio head Stat Cat Scan 10/13/24 13:[address] angio neck Stat Cat Scan 10/13/24 13:[address] head/brain wo con Stat Cat Scan 10/13/24 13:21 Completed CBC w/Auto Diff [Complete Blood Count Auto Diff] Stat Lab 10/13/24 13:17 Completed CMP [Comprehensive Metabolic Panel] Stat Lab 10/13/24 13:17 Completed Magnesium Stat Lab 10/13/24 13:17 Completed PT INR [Prothrombin Time INR] Stat Lab 10/13/24 13:17 Completed PTT [Activated Partial Thrombo Time] Stat Lab 10/13/24 13:17 Completed Medical Decision Narrative: Felice Nicole is a 34-year-old male with no known past medical history who presents to the emergency department with complaints of right facial drooping and numbness. Patient states that starting on Monday, he developed numbness and tingling to the right side of his tongue. The following day he developed drooping of his right lip and right face. He states that he feels like he is having to blink a lot and that his right eye does not close all the way. He was reading online that this could be signs of a stroke so he presented to the emergency department today. He denies any recent rashes or history of strokes. He denies any chest pain or shortness of breath. He denies any numbness or weakness in his arms or legs. He has been ambulating normally. On arrival, patient is normotensive, heart rate within normal limits, over the complaint room air with appropriate oxygen saturation. Afebrile. Physical exam, stated above, revealed an overall well-appearing male in no distress. He has right-sided facial droop at the corner of the mouth, nasolabial fold and right lower eyelid. He has loss of wrinkling on the right side of the forehead. Pupils equal round reactive to light. Extraocular movements intact. Tongue is midline with extrusion. The remainder of his cranial nerves are intact. Full strength and sensation of bilateral upper and lower extremities. No cerebellar signs. Patient does not have any rashes in his ear or along the face. Differential diagnosis includes, but is not limited to: Ballard's palsy, stroke, electrolyte derangement, among others. The most morbid conditions were considered and workup was based on these. Based on physical exam, there is low concern for Mili Nicole syndrome as he does not have any evidence of rash and tympanic membrane's are clear bilaterally. Workup in the emergency room included: CTA head and neck, CT head without contrast, CBC, CMP, PT/INR, PTT Laboratory workup is unremarkable. CT imaging interpreted by me personally. No intracranial hemorrhage, mass or midline shift. No significant stenosis or large vessel occlusion. See radiology report for details. Given these findings, it is felt the patient symptomatology is best explained by Ballard's palsy. He is over 72 hours from the initial symptomatology and is felt that he would not benefit from steroids given this. Will treat with 7-day course of valacyclovir. Patient was instructed to tape his right eye shut when sleeping to avoid dry eyes. He was also given artificial tears to help with dry eyes. I reassured patient that this is a self resolving condition, although it can take several weeks to fully recover. Return precautions were given. All questions were answered. He demonstrated understanding and was in agreement this plan. He was then discharged from the emergency department in stable condition Critical Care Critical Care Time Critical Care Time: No
[2024-10-13 13:30] VITALS: BP 135/85; PULSE 94; RESP 16; O2SAT 96
[2024-10-13 13:34] LABS: Albumin Level 4.8 g/dl (3.5-5.0); Chloride 105 mmol/L (98-107); Potassium 3.7 mmoL/L (3.5-5.1); Sodium 143 mmol/L (136-145)
[2024-10-13 13:37] LABS: Alanine Aminotransferase 24 U/L (12-78); Albumin/Globulin Ratio 1.6 (1.1-1.8); Alkaline Phosphatase 109 U/L (38-126); Anion Gap 13.7 mEq/L (5-15); Aspartate Amino Transferase 30 U/L (17-59); Bilirubin,Total 0.4 mg/dl (0.2-1.3); Blood Urea Nitrogen 12 mg/dl (9-20); Calcium 9.2 mg/dl (8.4-10.2); Carbon Dioxide 28 mmol/L (22.0-30.0); Creatinine Clearance Estimated 152 mL/min (50-200); Creatinine,Serum 0.80 mg/dl (0.66-1.25); Estimated Glomerular Filt Rate 109 ml/min (>60); GFR (African American) 132 ML/MIN (>60); Globulin 3.0 g/dL (1.3-3.2); Glucose 110 mg/dl (74-100); Magnesium 1.9 mg/dl (1.6-2.3); Total Protein,Serum 7.8 g/dl (6.3-8.2)
[2024-10-13 13:39] LABS: Activated Partial Thrombo Time 27.1 seconds (22.8-30.6); INR 1.00 (0.9-1.1); Prothrombin Time 11.1 seconds (10.1-12.5)
[2024-10-13] MEDS: SODIUM CHLORIDE 0.9% 10ML SYR (RAD ONLY) 10 ML IV (13:52)
[2024-10-13] MEDS: IOPAMIDOL-370 (76%);100ML BOTTLE 80 ML IV (13:52)
[2024-10-13] MEDS: 0.9 % SODIUM CHLORIDE 50 ML VIAL IV (13:52)
[2024-10-13 14:00] VITALS: BP 147/102; PULSE 84; RESP 22; O2SAT 94
[2024-10-13 14:15] VITALS: BP 142/84; PULSE 80; RESP 21; O2SAT 97
[2024-10-13 14:44] VITALS: BP 132/74; PULSE 74; RESP 17; TEMP 36.5; O2SAT 99
== END 2024-10-13 14:46 | disposition home or self-care (01) ==
PROVIDERS: Emergency Provider Student in an Organized Health Care Education/Training Program
DX: G51.0 Bell's palsy (principal); F17.210 Nicotine dependence, cigarettes, uncomplicated; R20.2 Paresthesia of skin
CPT/HCPCS: 70450; 70496; 70498; 80053; 83735; 85025; 85610; 85730; 93005; 99285; Q9967